=== PATIENT | male | born 1980 | race Caucasian/White ===

== ENCOUNTER 2017-01-27 11:45 | Emergency (ER) | payer BC ==
[2017-01-27 11:56] VITALS: BP 155/85
[2017-01-27] MEDS ORDERED: Ketorolac INJ* 60 MG/2 ML VIAL IM ONE (12:28)
[2017-01-27] MEDS ORDERED: Penicillin VK TAB* 250 MG PO ONE (12:29)
--- NOTE | 2017-01-27 15:42 | ED ---
Throat Pain/Nasal Congestion - HPI Summary HPI Summary: Patient presents with right lower tooth pain and swelling for 4 days. He is not able to get in with a dentist for another 5 days. He is taking ibuprofen 800mg two to three times daily with minimal relief. He has pain with eating, but no drainage, fever, chills. or neck pain. - History of Current Complaint Chief Complaint: EDDentalPain Time Seen by Provider: 01/27/17 12:06 Hx Obtained From: Patient, Family/Substitute Teacher Onset/Duration: Gradual Onset Severity: Moderate Associated Signs And Symptoms: Positive: Negative Cough: None - Allergies/Home Medications Allergies/Adverse Reactions: Allergies Allergy/AdvReac Type Severity Reaction Status Date / Time No Known Allergies Allergy Verified 01/27/17 12:31 PMH/Surg Hx/FS Hx/Imm Hx Previously Healthy: Yes Infectious Disease History: Denies: Traveled Outside the [place] in Last 30 Days - Family History Known Family History: Positive: None - Social History Occupation: Employed Full-time Lives: With Family Alcohol Use: Rare Substance Use Type: Reports: None Smoking Status (MU): Never Smoked Tobacco Review of Systems Negative: Fever, Chills Positive: Dental Pain. Negative: Sore Throat, Ear Ache All Other Systems Reviewed And Are Negative: Yes Physical Exam Triage Information Reviewed: Yes Vital Signs On Initial Exam: Initial Vitals Temp Pulse Resp BP Pulse Ox 97.5 F 86 16 155/85 100 01/27/17 11:54 01/27/17 11:54 01/27/17 11:54 01/27/17 11:54 01/27/17 11:54 Vital Signs Reviewed: Yes Appearance: Positive: Well-Appearing, Well-Nourished, Pain Distress Skin: Positive: Warm, Skin Color Reflects Adequate Perfusion, Dry, Soft Head/Face: Positive: Normal Head/Face Inspection Eyes: Positive: EOMI, JACOB, Conjunctiva Clear ENT: Positive: Hearing grossly normal, Pharynx normal Dental: Positive: Gross Decay/Caries @ Neck: Positive: Supple, Nontender, No Lymphadenopathy Respiratory/Lung Sounds: Positive: Breath Sounds Present Cardiovascular: Positive: RRR Neurological: Positive: Sensory/Motor Intact, Alert, Oriented to Person Place, Time, NV Bundle Intact Distally, Normal Gait Psychiatric: Positive: Affect/Mood Appropriate AVPU Assessment: Alert Diagnostics - Vital Signs Vital Signs Temp Pulse Resp BP Pulse Ox 01/27/17 12:27 97.5 F 86 18 155/85 98 01/27/17 11:54 97.5 F 86 16 155/85 100 - Laboratory Lab Statement: Any lab studies that have been ordered have been reviewed, and results considered in the medical decision making process. EENT Course/Dx - Differential Diagnoses Differential Diagnoses: Dental Abscess, Dental Caries, Fractured Tooth, Mastoiditis, Periodontic Abscess, Periodontic Disease - Diagnoses Provider Diagnoses: Dental infection Discharge - Discharge Plan Condition: Stable Disposition: HOME Prescriptions: Penicillin VK TAB* [Penicillin VK 250 mg Tab*] 500 mg PO QID #39 tab traMADol TAB* [Ultram*] 50 mg PO Q6HR PRN #12 tab MDD 4 PRN Reason: Pain Patient Education Materials: Toothache (ED) Referrals: No Primary Care Phys,NOPCP [Primary Care Provider] - Additional Instructions: Please begin taking ibuprofen 800mg three times daily with meals tomorrow at lunch for the next 3-5 days. Use the pain pill as needed. Take the antibiotics prescribed until they are completely gone. Follow-up with a dentist as soon as possible. Return to the emergency department if symptoms worsen.
== END 2017-01-27 13:10 | disposition home or self-care (01) ==
LOC: ED 11:45
DX: K04.7 Periapical abscess without sinus (principal); K08.89 Other specified disorders of teeth and supporting structures
CPT/HCPCS: 96372; 99282; A9270-GY; J1885

== ENCOUNTER 2017-01-28 21:42 | Emergency (ER) | payer BC ==
[2017-01-28 21:47] VITALS: BP 167/95
[2017-01-28] MEDS ORDERED: HYDROcodone/ACETAMIN 5-325 MG* 1 TAB PO ONE (22:55)
--- NOTE | 2017-01-28 23:02 | ED ---
Throat Pain/Nasal Congestion - HPI Summary HPI Summary: 36M presents with dental pain for two days. Was seen here yesterday and was prescribed tramadol which says is not working. Is also taking ibuprofen 800mg every 6 hours. Has a dentist appointment on Saturday after finished course of antibiotics. Has not taken any other narcotic in past so does not know what works for him. He denies any fever, drainage, SOB, chest pain, or difficulty swallowing. - History of Current Complaint Chief Complaint: EDDentalPain Time Seen by Provider: 01/28/17 22:15 - Allergies/Home Medications Allergies/Adverse Reactions: Allergies Allergy/AdvReac Type Severity Reaction Status Date / Time No Known Allergies Allergy Verified 01/28/17 21:47 PMH/Surg Hx/FS Hx/Imm Hx Endocrine/Hematology History: Denies: Hx Anticoagulant Therapy Respiratory History: Denies: Hx Asthma Infectious Disease History: Yes Infectious Disease History: Denies: Traveled Outside the [place] in Last 30 Days - Family History Known Family History: Positive: None, Hypertension - Social History Alcohol Use: Rare Substance Use Type: Reports: None Smoking Status (MU): Never Smoked Tobacco Review of Systems Negative: Fever Positive: Dental Pain Negative: Chest Pain Negative: Shortness Of Breath All Other Systems Reviewed And Are Negative: Yes Physical Exam Triage Information Reviewed: Yes Vital Signs On Initial Exam: Initial Vitals Temp Pulse Resp BP Pulse Ox 97.5 F 65 18 167/95 99 01/28/17 21:43 01/28/17 21:43 01/28/17 21:43 01/28/17 21:43 01/28/17 21:43 Vital Signs Reviewed: Yes Appearance: Positive: Well-Appearing Skin: Positive: Warm, Dry Head/Face: Positive: Normal Head/Face Inspection Eyes: Positive: Normal, Conjunctiva Clear ENT: Positive: Normal ENT inspection, Pharynx normal, TMs normal Dental: Positive: Percussion Tenderness @ - 31, Gross Decay/Caries @ - 31. Negative: Dental Fracture @, Abscess @, Bleeding Neck: Positive: Supple, Nontender, No Lymphadenopathy Respiratory/Lung Sounds: Positive: Clear to Auscultation, Breath Sounds Present Cardiovascular: Positive: Normal, RRR Diagnostics - Vital Signs Vital Signs Temp Pulse Resp BP Pulse Ox 01/28/17 21:43 97.5 F 65 18 167/95 99 - Laboratory Lab Statement: Any lab studies that have been ordered have been reviewed, and results considered in the medical decision making process. EENT Course/Dx - Course Course Of Treatment: 36M presents with dental pain for two days. has appt on Saturday with dentist. says that the tramadol is not working. discussed with patient and decide will have switch to viocdin and add gapabentin. istop nothing besides what ordered yesterday. no new sign of infection on exam. patient understands and agrees with plan - Differential Diagnoses Differential Diagnoses: Dental Abscess, Dental Caries, Fractured Tooth - Diagnoses Provider Diagnoses: Dental infection Discharge - Discharge Plan Condition: Good Disposition: HOME Prescriptions: Gabapentin CAP(*) [Neurontin 100 mg CAP(*)] 200 mg PO TID #24 cap Hydrocodone-Acetaminophen [Vicodin 5-300 mg] 1 tab PO Q6H PRN #20 tab MDD 4 PRN Reason: Pain Patient Education Materials: Toothache (ED) Referrals: No Primary Care Phys,NOPCP [Primary Care Provider] - Additional Instructions: Continue antibiotic Continue ibuprofen, switch to vicodin every 6 hours and stop tramadol Can add gabapentin three times a day for additional pain control Follow up with dentist Return to ED if develop any new or worsening symptoms Images - Images Dental: 1 - pain
== END 2017-01-28 23:04 | disposition home or self-care (01) ==
LOC: ED 21:42
DX: K04.7 Periapical abscess without sinus (principal); K08.89 Other specified disorders of teeth and supporting structures
CPT/HCPCS: 99281